=== PATIENT | female | born 1945 | race African-American/Black ===

== ENCOUNTER 2017-08-23 17:00 | Emergency (ER) | payer MEDICARE, OTHER, MEDICAID ==
[~2017-08-23] VITALS: Ht 172.7 cm; Wt 113.6 kg
[~2017-08-23 17:00] MED LIST: CLON.2 PO; DILT120C92 PO; ENAL10TA PO; FURO40 PO; INSU100C4 SQ; METO-391 PO; PANT20TA PO; SUCR1TAB PO; ZOLP10TA2 PO; [UNRECOGNIZED DRUG - OTHER]
[2017-08-23] MEDS ORDERED: OXYC-31 PO (18:37)
[2017-08-23] MEDS ORDERED: DILT180C63 PO (18:37)
[2017-08-23] MEDS ORDERED: PANT40TA25 PO (18:37)
[2017-08-23] MEDS ORDERED: IBUPROFEN 600 MG TABLET PO ONE (18:45)
[2017-08-23 19:29] VITALS: BP 148/87
== END 2017-08-23 19:50 | disposition home or self-care (01) ==
LOC: EMS 17:02
DX: S93.401A Sprain of unspecified ligament of right ankle, initial encounter (principal); S93.601A Unspecified sprain of right foot, initial encounter; I25.10 Atherosclerotic heart disease of native coronary artery without angina pectoris; E11.9 Type 2 diabetes mellitus without complications; I10 Essential (primary) hypertension; E78.00 Pure hypercholesterolemia, unspecified; Z79.4 Long term (current) use of insulin; Z88.0 Allergy status to penicillin; Z88.5 Allergy status to narcotic agent; Z88.8 Allergy status to other drugs, medicaments and biological substances; X50.9XXA Other and unspecified overexertion or strenuous movements or postures, initial encounter; Y93.89 Activity, other specified; Y92.89 Other specified places as the place of occurrence of the external cause; Y99.8 Other external cause status
CPT/HCPCS: 29540; 99284

== ENCOUNTER 2018-04-17 22:01 | Emergency (ER) | payer MEDICARE, OTHER ==
[~2018-04-17] VITALS: Ht 172.7 cm; Wt 122.7 kg
[~2018-04-17 22:01] MED LIST changes: -DILT120C92 PO; +DILT180C63 PO; +OXYC-31 PO; -PANT20TA PO; +PANT40TA25 PO; -[UNRECOGNIZED DRUG - OTHER]
[2018-04-17] MEDS ORDERED: SODIUM CHLORIDE 0.9% 1,000 ML IV ONE (22:30)
[2018-04-17] MEDS ORDERED: MIRALAX PO (22:41)
[2018-04-17] MEDS ORDERED: COLE625 PO (22:41)
[2018-04-17] MEDS ORDERED: OXCA300T PO (22:41)
[2018-04-17] MEDS ORDERED: FURO20 PO (22:41)
[2018-04-17] MEDS ORDERED: MOM30 PO (22:41)
[2018-04-17] MEDS ORDERED: AUD NEB (22:41)
[2018-04-17] MEDS ORDERED: CLOP75 PO (22:41)
[2018-04-17] MEDS ORDERED: VALS80TA2 PO (22:41)
[2018-04-17] MEDS ORDERED: ONDA4 PO (22:41)
[2018-04-17] MEDS ORDERED: GABA-531 PO (22:41)
[2018-04-17] MEDS ORDERED: INSLAN SQ (22:41)
[2018-04-17] MEDS ORDERED: BISA10S PR (22:41)
[2018-04-17] MEDS ORDERED: FE PR (22:41)
[2018-04-17] MEDS ORDERED: METO-558 PO (22:41)
[2018-04-17] MEDS ORDERED: INSU100V SQ (22:41)
[2018-04-17] MEDS ORDERED: FERR-89 PO (22:41)
[2018-04-18] MEDS ORDERED: IBUPROFEN 600 MG TABLET PO ONE (00:45)
[2018-04-18 01:24] VITALS: BP 155/61
== END 2018-04-18 03:35 | disposition home or self-care (01) ==
LOC: EMS 22:03
DX: S16.1XXA Strain of muscle, fascia and tendon at neck level, initial encounter (principal); S29.012A Strain of muscle and tendon of back wall of thorax, initial encounter; F41.9 Anxiety disorder, unspecified; E11.9 Type 2 diabetes mellitus without complications; E78.00 Pure hypercholesterolemia, unspecified; I10 Essential (primary) hypertension; Z88.0 Allergy status to penicillin; Z88.8 Allergy status to other drugs, medicaments and biological substances; Z88.6 Allergy status to analgesic agent; Z79.899 Other long term (current) drug therapy; Z79.4 Long term (current) use of insulin; X58.XXXA Exposure to other specified factors, initial encounter; Y93.B9 Activity, other involving muscle strengthening exercises; Y92.89 Other specified places as the place of occurrence of the external cause; Y99.8 Other external cause status
CPT/HCPCS: 99283

== ENCOUNTER 2018-04-19 11:13 | Inpatient (IN) | payer MEDICARE, MEDICAID ==
[~2018-04-19] VITALS: Ht 172.7 cm; Wt 113.0 kg
[~2018-04-19 11:13] MED LIST changes: +AUD NEB; +BISA10S PR; -CLON.2 PO; +CLOP75 PO; +COLE625 PO; -DILT180C63 PO; -ENAL10TA PO; +FE PR; +FERR-89 PO; +FURO20 PO; -FURO40 PO; +GABA-531 PO; +INSLAN SQ; -INSU100C4 SQ; +INSU100V SQ; -METO-391 PO; +METO-558 PO; +MIRALAX PO; +MOM30 PO; +ONDA4 PO; +OXCA300T PO; -OXYC-31 PO; -SUCR1TAB PO; +VALS80TA2 PO; -ZOLP10TA2 PO
[2018-04-19 11:29] LABS: GLUCOSE,POINT OF CARE 200 MG/DL (70-110)
[2018-04-19 12:12] LABS: BASOPHILS % (AUTO) 0.8 % (0.0-2.0); EOSINOPHILS % (AUTO) 0.2 % (1.0-6.0); HEMATOCRIT 36.9 % (36-46); HEMOGLOBIN 12.3 g/dL (12.0-16.0); LYMPHOCYTES # (AUTO) 1.1 K/uL (1.0-4.8); LYMPHOCYTES % (AUTO) 15.5 % (22.0-44.0); MEAN CORPUSCULAR HEMOGLOBIN 25.5 pg (26.0-34.0); MEAN CORPUSCULAR HGB CONC 33.5 G/dL (31.0-37.0); MEAN CORPUSCULAR VOLUME 76 fL (80-100); MONOCYTES # (AUTO) 0.4 K/uL (0.1-1.0); MONOCYTES % (AUTO) 5.1 % (2.0-9.0); NEUTROPHILS # (AUTO) 5.5 K/uL (1.8-7.7); NEUTROPHILS % (AUTO) 78.4 % (40.0-70.0); PLATELET COUNT (AUTO) 291 K/uL (150-450); RED BLOOD CELL COUNT(AUTO) 4.84 MIL/uL (4.00-5.20); RED CELL DISTRIBUTION WIDTH 15.9 % (11.5-14.5)
[2018-04-19 12:21] LABS: ANION GAP 5 mmol/L (8-16); CALCIUM, TOTAL 8.9 mg/dL (8.8-10.5); CARBON DIOXIDE 30 mmol/L (22-29); CHLORIDE 103 mmol/L (98-107); CREATININE 1.06 mg/dL (0.60-1.30); GLOMERULAR FILTR. RATE CALC > 60 mL/min (>60); GLUCOSE,RANDOM 189 mg/dL (70-110); POTASSIUM 3.9 mmol/L (3.5-5.1); SODIUM SERUM 138 mmol/L (136-145); UREA NITROGEN, BLOOD 13 mg/dL (7-18)
[2018-04-19 12:24] LABS: PROTHROMBIN TIME 10.7 SEC (9.4-11.6)
[2018-04-19 12:30] LABS: LACTIC ACID 1.4 mmol/L (0.4-2.0)
[2018-04-19 12:38] LABS: B-TYPE NATRIURETIC PEPTIDE 24 pg/mL (0-100)
[2018-04-19 13:00] LABS: ALANINE AMINOTRANSFERASE 52 U/L (12-78); ALBUMIN 3.5 g/dL (3.4-5.0); ALKALINE PHOSPHATASE 169 U/L (46-116); ASPARTATE AMINOTRANSFERASE 28 U/L (15-37); BILIRUBIN,TOTAL 0.4 mg/dL (0.1-1.0); CREATINE KINASE MB 1.7 ng/mL (0-5); CREATINE KINASE, TOTAL 120 U/L (26-192); TOTAL PROTEIN, SERUM 7.7 g/dL (6.4-8.2)
[2018-04-19 13:40] LABS: AMPHET/METH SCREEN,URINE NEGATIVE (NEGATIVE); BARBITURATE SCREEN, URINE NEGATIVE (NEGATIVE); BENZODIAZEPINES SCREEN,URINE NEGATIVE (NEGATIVE); BILIRUBIN,URINE NEGATIVE (NEGATIVE); CANNABINOID SCREEN,URINE NEGATIVE (NEGATIVE); COCAINE SCREEN,URINE NEGATIVE (NEGATIVE); GLUCOSE, URINE (UA) 250 mg/dL (NEGATIVE); KETONES,URINE NEGATIVE (NEGATIVE); LEUKOCYTE ESTERASE ,URINE NEGATIVE (NEGATIVE); METHADONE SCREEN, URINE NEGATIVE (NEGATIVE); NITRATE,URINE NEGATIVE (NEGATIVE); OCCULT BLOOD,URINE NEGATIVE (NEGATIVE); OPIATE SCREEN,URINE NEGATIVE (NEGATIVE); PH,URINE 5.5 (5.0-8.0); PROTEIN,URINE NEGATIVE (NEGATIVE); UROBILINOGEN,URINE 0.2 mg/dL (<=1.0)
[2018-04-19 13:41] LABS: PHENCYCLIDINE SCREEN,URINE NEGATIVE (NEGATIVE)
[2018-04-19 13:54] LABS: APPEARANCE,URINE 7Y= (CLEAR)
[2018-04-19 13:55] LABS: BACTERIA,URINE Rare /HPF (None Seen); RBC,URINE None Seen /HPF (0-2); SQUAMOUS EPITHELIAL CELL,UR Few /LPF (None Seen); WBC,URINE 0-2 /HPF (0-5)
[2018-04-19 14:57] LABS: GLUCOSE,POINT OF CARE 152 MG/DL (70-110)
[2018-04-19] MEDS ORDERED: FUROSEMIDE 20 MG TABLET PO ONE (16:00)
[2018-04-19] MEDS ORDERED: METOPROLOL SUCCINATE 50 MG ER TABLET PO ONE (16:00)
[2018-04-19] MEDS ORDERED: ACETAMINOPHEN 325 MG TABLET PO ONE (18:45)
[2018-04-20] MEDS ORDERED: ACETAMINOPHEN 500 MG TABLET PO ONE (02:45)
[2018-04-20 07:38] LABS: GLUCOSE,POINT OF CARE 169 MG/DL (70-110)
[2018-04-20] MEDS ORDERED: HALOPERIDOL 5 MG TABLET PO PRN (08:45)
[2018-04-20] MEDS ORDERED: LORazepam 2 MG TABLET PO PRN (08:45)
[2018-04-20 12:08] VITALS: BP 157/87
[2018-04-20 17:28] LABS: GLUCOSE,POINT OF CARE 214 MG/DL (70-110)
[2018-04-20 20:41] VITALS: BP 148/79
[2018-04-20] MEDS ORDERED: DEXTROSE 50%-WATER 25 GM/50 ML SYRINGE IVP PRN (21:00)
[2018-04-20] MEDS ORDERED: ACETAMINOPHEN 325 MG TABLET PO PRN (21:00)
[2018-04-20] MEDS: INSULIN LISPRO 100 UNITS/ML SQ PRN (21:17)
[2018-04-20] MEDS: ZOLPIDEM TARTRATE 10 MG TABLET PO PRN (21:20)
[2018-04-20 21:38] LABS: GLUCOSE,POINT OF CARE 223 MG/DL (70-110)
[2018-04-21] MEDS: IBUPROFEN 600 MG TABLET PO PRN (02:53)
[2018-04-21 05:47] LABS: CHOL/HDL RATIO 2.5 (3.9-5.7); FREE T4 (FREE THYROXINE) 0.92 ng/dL (0.76-1.46); THYROID STIMULATING HORMONE 1.19 uIU/mL (0.36-3.74)
[2018-04-21 06:48] LABS: GLUCOSE,POINT OF CARE 135 MG/DL (70-110)
[2018-04-21 08:20] VITALS: BP 191/91
[2018-04-21] MEDS: FUROSEMIDE 20 MG TABLET PO SCH ×2 (09:00→09:03)
[2018-04-21] MEDS: CLOPIDOGREL BISULFATE 75 MG TABLET PO SCH (09:03)
[2018-04-21] MEDS: VALSARTAN 80 MG TABLET PO SCH (09:03)
[2018-04-21] MEDS: METOPROLOL SUCCINATE 50 MG ER TABLET PO SCH ×2 (09:04→20:59)
[2018-04-21] MEDS: OXcarbazepine 300 MG TABLET PO SCH ×2 (09:04→20:59)
[2018-04-21] MEDS: PANTOPRAZOLE SODIUM 40 MG DR TABLET PO SCH (09:06)
[2018-04-21 10:00] VITALS: BP 145/76
[2018-04-21] MEDS: GABAPENTIN 300 MG CAPSULE PO SCH ×3 (10:37→20:59)
[2018-04-21] MEDS ORDERED: ONDANSETRON HCL 4 MG TABLET PO PRN (10:45)
[2018-04-21] MEDS ORDERED: DOCUSATE SODIUM 100 MG CAPSULE PO PRN (10:45)
[2018-04-21] MEDS ORDERED: MAGNESIUM HYDROXIDE SUSPENSION 30 ML UDCUP PO PRN (10:45)
[2018-04-21] MEDS ORDERED: PETROLATUM,WHITE 71 GM JELLY TP PRN (10:45)
[2018-04-21] MEDS: ACETAMINOPHEN 325 MG TABLET PO PRN (16:04)
[2018-04-21 16:05] VITALS: BP 126/73
[2018-04-21 17:35] LABS: GLUCOSE,POINT OF CARE 164 MG/DL (70-110)
[2018-04-21] MEDS: INSULIN LISPRO 100 UNITS/ML SQ PRN ×2 (17:40→20:54)
[2018-04-21 20:47] LABS: GLUCOSE,POINT OF CARE 279 MG/DL (70-110)
[2018-04-21] MEDS: INSULIN GLARGINE,HUM.REC.ANLOG 100 UNITS/ML SQ SCH (20:52)
[2018-04-21] MEDS: ATORVASTATIN CALCIUM 20 MG TABLET PO SCH (20:59)
[2018-04-21] MEDS: ZOLPIDEM TARTRATE 10 MG TABLET PO PRN (20:59)
[2018-04-22 05:55] LABS: GLUCOSE,POINT OF CARE 118 MG/DL (70-110)
[2018-04-22] MEDS: IBUPROFEN 600 MG TABLET PO PRN (06:12)
[2018-04-22] MEDS: METOPROLOL SUCCINATE 50 MG ER TABLET PO SCH ×2 (08:14→20:53)
[2018-04-22] MEDS: VALSARTAN 80 MG TABLET PO SCH (08:14)
[2018-04-22] MEDS: GABAPENTIN 300 MG CAPSULE PO SCH ×3 (08:14→20:53)
[2018-04-22] MEDS: PANTOPRAZOLE SODIUM 40 MG DR TABLET PO SCH (08:15)
[2018-04-22] MEDS: OXcarbazepine 300 MG TABLET PO SCH ×2 (08:16→20:53)
[2018-04-22] MEDS: CLOPIDOGREL BISULFATE 75 MG TABLET PO SCH (08:16)
[2018-04-22 08:27] VITALS: BP 168/101
[2018-04-22] MEDS: ACETAMINOPHEN 325 MG TABLET PO PRN (08:27)
[2018-04-22] MEDS: FERROUS SULFATE 325 MG EC TABLET PO SCH (08:27)
[2018-04-22] MEDS: NICOTINE 14 MG/24 HOUR PATCH TD SCH (09:00)
[2018-04-22] MEDS: FUROSEMIDE 20 MG TABLET PO SCH (09:00)
[2018-04-22 09:41] VITALS: BP 168/101
[2018-04-22] MEDS: INSULIN LISPRO 100 UNITS/ML SQ PRN ×3 (11:29→23:21)
[2018-04-22 11:50] LABS: GLUCOSE,POINT OF CARE 226 MG/DL (70-110)
[2018-04-22 15:00] VITALS: BP 149/72
[2018-04-22 17:41] LABS: GLUCOSE,POINT OF CARE 166 MG/DL (70-110)
[2018-04-22 20:24] VITALS: BP 148/79
[2018-04-22 20:44] LABS: GLUCOSE,POINT OF CARE 213 MG/DL (70-110)
[2018-04-22] MEDS: ATORVASTATIN CALCIUM 20 MG TABLET PO SCH (20:53)
[2018-04-22] MEDS: INSULIN GLARGINE,HUM.REC.ANLOG 100 UNITS/ML SQ SCH (21:00)
[2018-04-23 06:09] LABS: GLUCOSE,POINT OF CARE 162 MG/DL (70-110)
[2018-04-23] MEDS: IBUPROFEN 600 MG TABLET PO PRN (06:19)
[2018-04-23] MEDS: INSULIN LISPRO 100 UNITS/ML SQ PRN ×3 (07:13→21:39)
[2018-04-23] MEDS: FUROSEMIDE 20 MG TABLET PO SCH (09:00)
[2018-04-23] MEDS: NICOTINE 14 MG/24 HOUR PATCH TD SCH (09:00)
[2018-04-23] MEDS: GABAPENTIN 300 MG CAPSULE PO SCH ×3 (09:04→21:32)
[2018-04-23] MEDS: OXcarbazepine 300 MG TABLET PO SCH ×2 (09:04→21:33)
[2018-04-23] MEDS: CLOPIDOGREL BISULFATE 75 MG TABLET PO SCH (09:04)
[2018-04-23] MEDS: METOPROLOL SUCCINATE 50 MG ER TABLET PO SCH ×2 (09:04→21:32)
[2018-04-23] MEDS: PANTOPRAZOLE SODIUM 40 MG DR TABLET PO SCH (09:05)
[2018-04-23] MEDS: VALSARTAN 80 MG TABLET PO SCH (09:05)
[2018-04-23] MEDS: AmLODIPine BESYLATE 5 MG TABLET PO SCH (09:05)
[2018-04-23] MEDS: FERROUS SULFATE 325 MG EC TABLET PO SCH (09:05)
[2018-04-23] MEDS: ACETAMINOPHEN 325 MG TABLET PO PRN ×2 (09:11→17:16)
[2018-04-23 09:12] VITALS: BP 165/75
[2018-04-23 11:50] LABS: GLUCOSE,POINT OF CARE 156 MG/DL (70-110)
[2018-04-23 17:16] VITALS: BP 149/60
[2018-04-23 17:25] LABS: GLUCOSE,POINT OF CARE 140 MG/DL (70-110)
[2018-04-23 20:05] VITALS: BP 156/69
[2018-04-23] MEDS: ATORVASTATIN CALCIUM 20 MG TABLET PO SCH (21:33)
[2018-04-23] MEDS: INSULIN GLARGINE,HUM.REC.ANLOG 100 UNITS/ML SQ SCH (21:40)
[2018-04-23 21:59] LABS: GLUCOSE,POINT OF CARE 218 MG/DL (70-110)
[2018-04-24] MEDS: ACETAMINOPHEN 325 MG TABLET PO PRN (05:43)
[2018-04-24 06:54] LABS: GLUCOSE,POINT OF CARE 121 MG/DL (70-110)
[2018-04-24] MEDS: NICOTINE 14 MG/24 HOUR PATCH TD SCH (09:00)
[2018-04-24 09:11] VITALS: BP 154/74
[2018-04-24] MEDS: OXcarbazepine 300 MG TABLET PO SCH ×2 (09:30→20:27)
[2018-04-24] MEDS: CLOPIDOGREL BISULFATE 75 MG TABLET PO SCH (09:30)
[2018-04-24] MEDS: FUROSEMIDE 20 MG TABLET PO SCH (09:30)
[2018-04-24] MEDS: METOPROLOL SUCCINATE 50 MG ER TABLET PO SCH ×2 (09:30→20:27)
[2018-04-24] MEDS: VALSARTAN 80 MG TABLET PO SCH (09:30)
[2018-04-24] MEDS: MULTIVITAMINS WITH MINERALS, THERAPEUTIC TABLET PO SCH (09:30)
[2018-04-24] MEDS: FERROUS SULFATE 325 MG EC TABLET PO SCH (09:30)
[2018-04-24] MEDS: GABAPENTIN 300 MG CAPSULE PO SCH ×3 (09:31→20:30)
[2018-04-24] MEDS: PANTOPRAZOLE SODIUM 40 MG DR TABLET PO SCH (09:31)
[2018-04-24] MEDS: AmLODIPine BESYLATE 5 MG TABLET PO SCH (09:31)
[2018-04-24] MEDS: INSULIN LISPRO 100 UNITS/ML SQ PRN ×3 (11:16→20:43)
[2018-04-24 11:24] LABS: GLUCOSE,POINT OF CARE 171 MG/DL (70-110)
[2018-04-24 16:29] LABS: GLUCOSE,POINT OF CARE 171 MG/DL (70-110)
[2018-04-24] MEDS: ATORVASTATIN CALCIUM 20 MG TABLET PO SCH (20:27)
[2018-04-24 20:42] VITALS: BP 151/77
[2018-04-24] MEDS: INSULIN GLARGINE,HUM.REC.ANLOG 100 UNITS/ML SQ SCH (20:45)
[2018-04-24 21:09] LABS: GLUCOSE,POINT OF CARE 176 MG/DL (70-110)
[2018-04-24] MEDS: ZOLPIDEM TARTRATE 10 MG TABLET PO PRN (21:50)
[2018-04-25 06:09] LABS: GLUCOMETER DEV NAME(LOC) 3EC; GLUCOSE,POINT OF CARE 103 MG/DL (70-110)
[2018-04-25] MEDS: FERROUS SULFATE 325 MG EC TABLET PO SCH (06:58)
[2018-04-25] MEDS: INSULIN LISPRO 100 UNITS/ML SQ PRN ×4 (07:00→21:27)
[2018-04-25] MEDS: FUROSEMIDE 20 MG TABLET PO SCH ×2 (09:00→09:12)
[2018-04-25] MEDS: CLOPIDOGREL BISULFATE 75 MG TABLET PO SCH (09:12)
[2018-04-25] MEDS: NICOTINE 14 MG/24 HOUR PATCH TD SCH (09:12)
[2018-04-25] MEDS: METOPROLOL SUCCINATE 50 MG ER TABLET PO SCH ×2 (09:12→17:46)
[2018-04-25] MEDS: VALSARTAN 40 MG TABLET PO SCH (09:13)
[2018-04-25] MEDS: MULTIVITAMINS WITH MINERALS, THERAPEUTIC TABLET PO SCH (09:16)
[2018-04-25] MEDS: GABAPENTIN 300 MG CAPSULE PO SCH ×3 (09:16→17:48)
[2018-04-25] MEDS: AmLODIPine BESYLATE 5 MG TABLET PO SCH (09:16)
[2018-04-25] MEDS: OXcarbazepine 300 MG TABLET PO SCH ×2 (09:16→17:48)
[2018-04-25] MEDS: PANTOPRAZOLE SODIUM 40 MG DR TABLET PO SCH (09:16)
[2018-04-25 10:58] VITALS: BP 161/69
[2018-04-25 12:10] LABS: GLUCOMETER DEV NAME(LOC) 3EC; GLUCOSE,POINT OF CARE 225 MG/DL (70-110)
[2018-04-25 17:39] LABS: GLUCOMETER DEV NAME(LOC) 3EC; GLUCOSE,POINT OF CARE 174 MG/DL (70-110)
[2018-04-25 18:30] VITALS: BP 168/69
[2018-04-25 21:19] LABS: GLUCOMETER DEV NAME(LOC) 3EC; GLUCOSE,POINT OF CARE 339 MG/DL (70-110)
[2018-04-25] MEDS: ATORVASTATIN CALCIUM 20 MG TABLET PO SCH (21:24)
[2018-04-25] MEDS: INSULIN GLARGINE,HUM.REC.ANLOG 100 UNITS/ML SQ SCH (21:24)
[2018-04-25] MEDS: ZOLPIDEM TARTRATE 10 MG TABLET PO PRN (21:24)
[2018-04-26 06:10] VITALS: BP 142/71
[2018-04-26] MEDS: IBUPROFEN 600 MG TABLET PO PRN (06:10)
[2018-04-26] MEDS: FERROUS SULFATE 325 MG EC TABLET PO SCH (06:45)
[2018-04-26 07:03] LABS: GLUCOMETER DEV NAME(LOC) 3EC; GLUCOSE,POINT OF CARE 68 MG/DL (70-110)
[2018-04-26 07:03] LABS: GLUCOMETER DEV NAME(LOC) 3EC; GLUCOSE,POINT OF CARE 134 MG/DL (70-110)
[2018-04-26] MEDS: NICOTINE 14 MG/24 HOUR PATCH TD SCH (08:20)
[2018-04-26] MEDS: MULTIVITAMINS WITH MINERALS, THERAPEUTIC TABLET PO SCH (08:21)
[2018-04-26] MEDS: GABAPENTIN 300 MG CAPSULE PO SCH ×3 (08:21→16:07)
[2018-04-26] MEDS: VALSARTAN 40 MG TABLET PO SCH (08:21)
[2018-04-26] MEDS: CLOPIDOGREL BISULFATE 75 MG TABLET PO SCH (08:21)
[2018-04-26] MEDS: AmLODIPine BESYLATE 5 MG TABLET PO SCH (08:21)
[2018-04-26] MEDS: METOPROLOL SUCCINATE 50 MG ER TABLET PO SCH ×2 (08:21→16:08)
[2018-04-26] MEDS: FUROSEMIDE 20 MG TABLET PO SCH (08:21)
[2018-04-26] MEDS: OXcarbazepine 300 MG TABLET PO SCH ×2 (08:22→16:08)
[2018-04-26] MEDS: PANTOPRAZOLE SODIUM 40 MG DR TABLET PO SCH (08:22)
[2018-04-26 11:34] LABS: GLUCOMETER DEV NAME(LOC) 3EC; GLUCOSE,POINT OF CARE 261 MG/DL (70-110)
[2018-04-26] MEDS: INSULIN LISPRO 100 UNITS/ML SQ PRN ×3 (11:42→21:35)
[2018-04-26 13:00] VITALS: BP 147/73
[2018-04-26 16:13] VITALS: BP 141/70
[2018-04-26 16:14] LABS: GLUCOMETER DEV NAME(LOC) 3EC; GLUCOSE,POINT OF CARE 277 MG/DL (70-110)
[2018-04-26] MEDS: ATORVASTATIN CALCIUM 20 MG TABLET PO SCH (21:32)
[2018-04-26] MEDS: ZOLPIDEM TARTRATE 10 MG TABLET PO PRN (21:32)
[2018-04-26 21:33] LABS: GLUCOMETER DEV NAME(LOC) 3EC; GLUCOSE,POINT OF CARE 351 MG/DL (70-110)
[2018-04-26] MEDS: INSULIN GLARGINE,HUM.REC.ANLOG 100 UNITS/ML SQ SCH (21:34)
[2018-04-27] MEDS: FERROUS SULFATE 325 MG EC TABLET PO SCH (06:55)
[2018-04-27 07:00] LABS: GLUCOMETER DEV NAME(LOC) 3EC; GLUCOSE,POINT OF CARE 65 MG/DL (70-110)
[2018-04-27 07:24] LABS: GLUCOMETER DEV NAME(LOC) 3EC; GLUCOSE,POINT OF CARE 122 MG/DL (70-110)
[2018-04-27] MEDS: NICOTINE 14 MG/24 HOUR PATCH TD SCH (09:00)
[2018-04-27] MEDS: VALSARTAN 40 MG TABLET PO SCH (09:49)
[2018-04-27] MEDS: GABAPENTIN 300 MG CAPSULE PO SCH ×3 (09:49→17:48)
[2018-04-27] MEDS: FUROSEMIDE 20 MG TABLET PO SCH (09:49)
[2018-04-27] MEDS: CLOPIDOGREL BISULFATE 75 MG TABLET PO SCH (09:50)
[2018-04-27] MEDS: PANTOPRAZOLE SODIUM 40 MG DR TABLET PO SCH (09:50)
[2018-04-27] MEDS: MULTIVITAMINS WITH MINERALS, THERAPEUTIC TABLET PO SCH (09:50)
[2018-04-27] MEDS: AmLODIPine BESYLATE 5 MG TABLET PO SCH (09:50)
[2018-04-27] MEDS: METOPROLOL SUCCINATE 50 MG ER TABLET PO SCH ×2 (09:50→17:47)
[2018-04-27] MEDS: OXcarbazepine 300 MG TABLET PO SCH ×2 (09:50→17:48)
[2018-04-27] MEDS: INSULIN LISPRO 100 UNITS/ML SQ PRN ×2 (11:13→17:47)
[2018-04-27 11:14] LABS: GLUCOMETER DEV NAME(LOC) 3EC; GLUCOSE,POINT OF CARE 184 MG/DL (70-110)
[2018-04-27 12:14] LABS: APPEARANCE,URINE TURBID (CLEAR); BILIRUBIN,URINE NEGATIVE (NEGATIVE); GLUCOSE, URINE (UA) NEGATIVE (NEGATIVE); KETONES,URINE NEGATIVE (NEGATIVE); LEUKOCYTE ESTERASE ,URINE LARGE (NEGATIVE); NITRATE,URINE NEGATIVE (NEGATIVE); OCCULT BLOOD,URINE SMALL (NEGATIVE); PROTEIN,URINE POS 1+ (NEGATIVE)
[2018-04-27 12:28] LABS: BACTERIA,URINE Many /HPF (None Seen); SQUAMOUS EPITHELIAL CELL,UR Few /LPF (None Seen); WBC,URINE >100 /HPF (0-5)
[2018-04-27 12:33] LABS: AMPHET/METH SCREEN,URINE NEGATIVE (NEGATIVE); BARBITURATE SCREEN, URINE NEGATIVE (NEGATIVE); BENZODIAZEPINES SCREEN,URINE NEGATIVE (NEGATIVE); CANNABINOID SCREEN,URINE NEGATIVE (NEGATIVE); COCAINE SCREEN,URINE NEGATIVE (NEGATIVE); METHADONE SCREEN, URINE NEGATIVE (NEGATIVE); OPIATE SCREEN,URINE NEGATIVE (NEGATIVE)
[2018-04-27 12:35] LABS: PHENCYCLIDINE SCREEN,URINE NEGATIVE (NEGATIVE)
[2018-04-27 14:26] VITALS: BP 127/59
[2018-04-27 16:00] VITALS: BP 127/67
[2018-04-27 17:33] LABS: GLUCOMETER DEV NAME(LOC) 3EC; GLUCOSE,POINT OF CARE 219 MG/DL (70-110)
[2018-04-27] MEDS: CIPROFLOXACIN HCL 250 MG TABLET PO SCH (17:47)
[2018-04-27] MEDS: ATORVASTATIN CALCIUM 20 MG TABLET PO SCH (22:00)
[2018-04-27] MEDS: ZOLPIDEM TARTRATE 10 MG TABLET PO PRN (22:35)
[2018-04-27 22:38] LABS: GLUCOMETER DEV NAME(LOC) 3EC; GLUCOSE,POINT OF CARE 409 MG/DL (70-110)
[2018-04-27] MEDS ORDERED: INSULIN LISPRO 100 UNITS/ML SQ ONE (23:00)
[2018-04-27] MEDS: INSULIN GLARGINE,HUM.REC.ANLOG 100 UNITS/ML SQ SCH (23:08)
[2018-04-28 05:34] LABS: GLUCOMETER DEV NAME(LOC) 3EC; GLUCOSE,POINT OF CARE 146 MG/DL (70-110)
[2018-04-28] MEDS: FERROUS SULFATE 325 MG EC TABLET PO SCH (06:49)
[2018-04-28] MEDS: INSULIN LISPRO 100 UNITS/ML SQ PRN ×4 (06:56→21:50)
[2018-04-28] MEDS: CIPROFLOXACIN HCL 250 MG TABLET PO SCH ×2 (08:07→16:41)
[2018-04-28] MEDS: MULTIVITAMINS WITH MINERALS, THERAPEUTIC TABLET PO SCH (08:07)
[2018-04-28] MEDS: VALSARTAN 40 MG TABLET PO SCH (08:07)
[2018-04-28] MEDS: METOPROLOL SUCCINATE 50 MG ER TABLET PO SCH ×2 (08:07→16:42)
[2018-04-28] MEDS: GABAPENTIN 300 MG CAPSULE PO SCH ×3 (08:07→16:41)
[2018-04-28] MEDS: OXcarbazepine 300 MG TABLET PO SCH ×2 (08:07→16:41)
[2018-04-28] MEDS: AmLODIPine BESYLATE 5 MG TABLET PO SCH (08:07)
[2018-04-28] MEDS: CLOPIDOGREL BISULFATE 75 MG TABLET PO SCH (08:08)
[2018-04-28] MEDS: PANTOPRAZOLE SODIUM 40 MG DR TABLET PO SCH (08:08)
[2018-04-28] MEDS: FUROSEMIDE 20 MG TABLET PO SCH (08:08)
[2018-04-28] MEDS: ACETAMINOPHEN 325 MG TABLET PO PRN (08:56)
[2018-04-28] MEDS: NICOTINE 14 MG/24 HOUR PATCH TD SCH (09:00)
[2018-04-28 09:14] VITALS: BP 135/69
[2018-04-28 11:34] LABS: GLUCOMETER DEV NAME(LOC) 3EC; GLUCOSE,POINT OF CARE 177 MG/DL (70-110)
[2018-04-28 16:20] VITALS: BP 137/78
[2018-04-28 16:52] VITALS: BP 140/74
[2018-04-28] MEDS: IBUPROFEN 600 MG TABLET PO PRN (16:52)
[2018-04-28 16:54] LABS: GLUCOMETER DEV NAME(LOC) 3EC; GLUCOSE,POINT OF CARE 301 MG/DL (70-110)
[2018-04-28] MEDS: ATORVASTATIN CALCIUM 20 MG TABLET PO SCH (21:35)
[2018-04-28] MEDS: ZOLPIDEM TARTRATE 10 MG TABLET PO PRN (21:36)
[2018-04-28 21:49] LABS: GLUCOMETER DEV NAME(LOC) 3EC; GLUCOSE,POINT OF CARE 368 MG/DL (70-110)
[2018-04-28] MEDS: INSULIN GLARGINE,HUM.REC.ANLOG 100 UNITS/ML SQ SCH (21:51)
[2018-04-29 06:04] LABS: GLUCOMETER DEV NAME(LOC) 3EC; GLUCOSE,POINT OF CARE 308 MG/DL (70-110)
[2018-04-29] MEDS: IBUPROFEN 600 MG TABLET PO PRN (06:26)
[2018-04-29] MEDS: FERROUS SULFATE 325 MG EC TABLET PO SCH (06:53)
[2018-04-29] MEDS: INSULIN LISPRO 100 UNITS/ML SQ PRN ×4 (07:01→20:49)
[2018-04-29 08:23] VITALS: BP 147/110
[2018-04-29] MEDS: CLOPIDOGREL BISULFATE 75 MG TABLET PO SCH (08:33)
[2018-04-29] MEDS: OXcarbazepine 300 MG TABLET PO SCH ×2 (08:34→16:33)
[2018-04-29] MEDS: AmLODIPine BESYLATE 5 MG TABLET PO SCH (08:34)
[2018-04-29] MEDS: MULTIVITAMINS WITH MINERALS, THERAPEUTIC TABLET PO SCH (08:34)
[2018-04-29] MEDS: METOPROLOL SUCCINATE 50 MG ER TABLET PO SCH ×2 (08:34→16:32)
[2018-04-29] MEDS: FUROSEMIDE 20 MG TABLET PO SCH (08:34)
[2018-04-29] MEDS: CIPROFLOXACIN HCL 250 MG TABLET PO SCH ×2 (08:34→17:06)
[2018-04-29] MEDS: VALSARTAN 40 MG TABLET PO SCH (08:34)
[2018-04-29] MEDS: GABAPENTIN 300 MG CAPSULE PO SCH ×3 (08:34→16:32)
[2018-04-29] MEDS: NICOTINE 14 MG/24 HOUR PATCH TD SCH (08:35)
[2018-04-29] MEDS: PANTOPRAZOLE SODIUM 40 MG DR TABLET PO SCH (08:35)
[2018-04-29 11:08] LABS: GLUCOMETER DEV NAME(LOC) 3EC; GLUCOSE,POINT OF CARE 352 MG/DL (70-110)
[2018-04-29 11:20] VITALS: BP 144/90
[2018-04-29] MEDS: ACETAMINOPHEN 325 MG TABLET PO PRN (11:21)
[2018-04-29 16:37] VITALS: BP 118/61
[2018-04-29 16:39] LABS: GLUCOMETER DEV NAME(LOC) 3EC; GLUCOSE,POINT OF CARE 248 MG/DL (70-110)
[2018-04-29] MEDS: SULFAMETHOX/TRIMETH DS 800-160 MG/TABLET PO SCH (17:30)
[2018-04-29] MEDS: ATORVASTATIN CALCIUM 20 MG TABLET PO SCH (20:35)
[2018-04-29] MEDS: INSULIN GLARGINE,HUM.REC.ANLOG 100 UNITS/ML SQ SCH (20:48)
[2018-04-29 20:58] LABS: GLUCOMETER DEV NAME(LOC) 3EC; GLUCOSE,POINT OF CARE 344 MG/DL (70-110)
[2018-04-30 05:34] LABS: GLUCOMETER DEV NAME(LOC) 3EI B; GLUCOSE,POINT OF CARE 142 MG/DL (70-110)
[2018-04-30] MEDS: FERROUS SULFATE 325 MG EC TABLET PO SCH (06:38)
[2018-04-30] MEDS: INSULIN LISPRO 100 UNITS/ML SQ PRN ×3 (07:15→20:59)
[2018-04-30 09:00] VITALS: BP 121/57
[2018-04-30] MEDS: OXcarbazepine 300 MG TABLET PO SCH ×2 (09:00→17:30)
[2018-04-30] MEDS: FUROSEMIDE 20 MG TABLET PO SCH (09:00)
[2018-04-30] MEDS: CLOPIDOGREL BISULFATE 75 MG TABLET PO SCH (09:01)
[2018-04-30] MEDS: GABAPENTIN 300 MG CAPSULE PO SCH ×3 (09:01→17:30)
[2018-04-30] MEDS: NICOTINE 14 MG/24 HOUR PATCH TD SCH (09:01)
[2018-04-30] MEDS: METOPROLOL SUCCINATE 50 MG ER TABLET PO SCH ×2 (09:01→17:30)
[2018-04-30] MEDS: AmLODIPine BESYLATE 5 MG TABLET PO SCH (09:01)
[2018-04-30] MEDS: VALSARTAN 40 MG TABLET PO SCH (09:01)
[2018-04-30] MEDS: PANTOPRAZOLE SODIUM 40 MG DR TABLET PO SCH (09:01)
[2018-04-30] MEDS: MULTIVITAMINS WITH MINERALS, THERAPEUTIC TABLET PO SCH (09:01)
[2018-04-30] MEDS: SULFAMETHOX/TRIMETH DS 800-160 MG/TABLET PO SCH ×2 (09:01→17:30)
[2018-04-30] MEDS: IBUPROFEN 600 MG TABLET PO PRN (10:06)
[2018-04-30 11:13] LABS: GLUCOMETER DEV NAME(LOC) 3EI B; GLUCOSE,POINT OF CARE 230 MG/DL (70-110)
[2018-04-30 16:32] VITALS: BP 112/59
[2018-04-30 17:39] LABS: GLUCOMETER DEV NAME(LOC) 3EI B; GLUCOSE,POINT OF CARE 132 MG/DL (70-110)
[2018-04-30] MEDS: INSULIN GLARGINE,HUM.REC.ANLOG 100 UNITS/ML SQ SCH (20:59)
[2018-04-30] MEDS: ATORVASTATIN CALCIUM 20 MG TABLET PO SCH (21:01)
[2018-04-30 21:04] LABS: GLUCOMETER DEV NAME(LOC) 3EI B; GLUCOSE,POINT OF CARE 219 MG/DL (70-110)
[2018-05-01 05:19] LABS: GLUCOMETER DEV NAME(LOC) 3EI B; GLUCOSE,POINT OF CARE 107 MG/DL (70-110)
[2018-05-01 05:58] VITALS: BP 154/71
[2018-05-01] MEDS: FERROUS SULFATE 325 MG EC TABLET PO SCH (06:34)
[2018-05-01 08:00] VITALS: BP 108/50
[2018-05-01] MEDS: NICOTINE 14 MG/24 HOUR PATCH TD SCH (09:00)
[2018-05-01] MEDS: VALSARTAN 40 MG TABLET PO SCH (09:00)
[2018-05-01] MEDS: METOPROLOL SUCCINATE 50 MG ER TABLET PO SCH ×2 (09:00→16:12)
[2018-05-01] MEDS: PANTOPRAZOLE SODIUM 40 MG DR TABLET PO SCH (10:20)
[2018-05-01] MEDS: SULFAMETHOX/TRIMETH DS 800-160 MG/TABLET PO SCH ×2 (10:20→16:11)
[2018-05-01] MEDS: MULTIVITAMINS WITH MINERALS, THERAPEUTIC TABLET PO SCH (10:20)
[2018-05-01] MEDS: OXcarbazepine 300 MG TABLET PO SCH ×2 (10:21→16:11)
[2018-05-01] MEDS: CLOPIDOGREL BISULFATE 75 MG TABLET PO SCH (10:21)
[2018-05-01] MEDS: GABAPENTIN 300 MG CAPSULE PO SCH ×3 (10:22→16:11)
[2018-05-01] MEDS: FUROSEMIDE 20 MG TABLET PO SCH (10:23)
[2018-05-01] MEDS: VITAMINS A & D 60 GM OINTMENT TP PRN (10:36)
[2018-05-01 11:34] LABS: GLUCOMETER DEV NAME(LOC) 3EI B; GLUCOSE,POINT OF CARE 155 MG/DL (70-110)
[2018-05-01] MEDS: INSULIN LISPRO 100 UNITS/ML SQ PRN ×2 (11:50→21:06)
[2018-05-01 16:10] VITALS: BP 135/65
[2018-05-01] MEDS: IBUPROFEN 600 MG TABLET PO PRN (16:10)
[2018-05-01 20:29] LABS: GLUCOMETER DEV NAME(LOC) 3EI B; GLUCOSE,POINT OF CARE 245 MG/DL (70-110)
[2018-05-01] MEDS: ATORVASTATIN CALCIUM 20 MG TABLET PO SCH (20:52)
[2018-05-01] MEDS: INSULIN GLARGINE,HUM.REC.ANLOG 100 UNITS/ML SQ SCH (21:05)
[2018-05-02] MEDS: VITAMINS A & D 60 GM OINTMENT TP PRN (04:57)
[2018-05-02] MEDS: ALBUTEROL SULFATE HFA 90 MCG/PUFF 8 GM INHALER IH PRN ×2 (05:24→11:03)
[2018-05-02 05:38] VITALS: BP 164/75
[2018-05-02] MEDS: IBUPROFEN 600 MG TABLET PO PRN (05:46)
[2018-05-02 05:58] LABS: GLUCOMETER DEV NAME(LOC) 3EI B; GLUCOSE,POINT OF CARE 101 MG/DL (70-110)
[2018-05-02] MEDS: INSULIN LISPRO 100 UNITS/ML SQ PRN ×2 (06:26→11:50)
[2018-05-02] MEDS: FERROUS SULFATE 325 MG EC TABLET PO SCH (07:05)
[2018-05-02 08:30] VITALS: BP 126/68
[2018-05-02] MEDS: NICOTINE 14 MG/24 HOUR PATCH TD SCH (09:00)
[2018-05-02] MEDS ORDERED: AmLODIPine BESYLATE 5 MG TABLET PO SCH (09:00)
[2018-05-02] MEDS: VALSARTAN 40 MG TABLET PO SCH (10:14)
[2018-05-02] MEDS: FUROSEMIDE 20 MG TABLET PO SCH (10:14)
[2018-05-02] MEDS: GABAPENTIN 300 MG CAPSULE PO SCH ×2 (10:14→13:55)
[2018-05-02] MEDS: SULFAMETHOX/TRIMETH DS 800-160 MG/TABLET PO SCH (10:14)
[2018-05-02] MEDS: CLOPIDOGREL BISULFATE 75 MG TABLET PO SCH (10:15)
[2018-05-02] MEDS: MULTIVITAMINS WITH MINERALS, THERAPEUTIC TABLET PO SCH (10:15)
[2018-05-02] MEDS: PANTOPRAZOLE SODIUM 40 MG DR TABLET PO SCH (10:15)
[2018-05-02] MEDS: METOPROLOL SUCCINATE 50 MG ER TABLET PO SCH (10:15)
[2018-05-02] MEDS: OXcarbazepine 300 MG TABLET PO SCH (10:16)
[2018-05-02] MEDS ORDERED: ATOR20TA86 PO (10:43)
[2018-05-02] MEDS ORDERED: AMLO-511 PO (10:44)
[2018-05-02] MEDS ORDERED: SULF1TAB42 PO (10:48)
[2018-05-02] MEDS ORDERED: MULT-1239 PO (10:56)
[2018-05-02 11:39] LABS: GLUCOMETER DEV NAME(LOC) 3EI B; GLUCOSE,POINT OF CARE 170 MG/DL (70-110)
== END 2018-05-02 15:00 | disposition home or self-care (01) | DRG 885 ==
LOC: EMS 11:14 → AHU 04-20 10:54 → 3EC 04-24 21:28 → 3EI 04-29 21:15
PROVIDERS: ADMIT Psychiatry & Neurology Psychiatry; ATTEND Psychiatry & Neurology Psychiatry
DX: F29 Unspecified psychosis not due to a substance or known physiological condition (principal); N39.0 Urinary tract infection, site not specified; F32.9 Major depressive disorder, single episode, unspecified; E11.9 Type 2 diabetes mellitus without complications; J45.909 Unspecified asthma, uncomplicated; G40.909 Epilepsy, unspecified, not intractable, without status epilepticus; K21.9 Gastro-esophageal reflux disease without esophagitis; R45.87 Impulsiveness; E66.01 Morbid (severe) obesity due to excess calories; K59.09 Other constipation; R26.81 Unsteadiness on feet; I11.0 Hypertensive heart disease with heart failure; I50.9 Heart failure, unspecified; B96.4 Proteus (mirabilis) (morganii) as the cause of diseases classified elsewhere; F41.9 Anxiety disorder, unspecified; I25.10 Atherosclerotic heart disease of native coronary artery without angina pectoris; E78.00 Pure hypercholesterolemia, unspecified; E78.5 Hyperlipidemia, unspecified; Z86.73 Personal history of transient ischemic attack (TIA), and cerebral infarction without residual deficits; Z79.4 Long term (current) use of insulin; Z59.0 Homelessness; Z88.0 Allergy status to penicillin; Z88.5 Allergy status to narcotic agent; Z90.710 Acquired absence of both cervix and uterus; Z90.721 Acquired absence of ovaries, unilateral; Z88.6 Allergy status to analgesic agent; Z68.37 Body mass index [BMI] 37.0-37.9, adult
CPT/HCPCS: 70450; 80307; 83605; 84439; 84443; 87040; 87081; 87086; 93005; 97161; 97166; 97530; 97535; 99285; J1815; J3535

== ENCOUNTER 2019-08-06 13:40 | Inpatient (IN) | payer MEDICARE, OTHER ==
[~2019-08-06] VITALS: Ht 172.7 cm; Wt 107.9 kg
[~2019-08-06 13:40] MED LIST changes: +AMLO5TAB9 PO; +ATOR20TA86 PO; -AUD NEB; -BISA10S PR; -CLOP75 PO; +CLOP75TA3 PO; -COLE625 PO; -FE PR; -INSU100V SQ; -MIRALAX PO; -MOM30 PO; +MULT-1239 PO; -ONDA4 PO; -OXCA300T PO; +OXCA300T29 PO; +SULF1TAB42 PO
[2019-08-06 14:51] LABS: GLUCOSE,POINT OF CARE 340 MG/DL (70-110)
[2019-08-06 15:26] LABS: BASOPHILS % (AUTO) 0.7 % (0.0-2.0); EOSINOPHILS % (AUTO) 0.6 % (1.0-6.0); HEMATOCRIT 38.4 % (36-46); HEMOGLOBIN 12.8 g/dL (12.0-16.0); LYMPHOCYTES # (AUTO) 1.5 K/uL (1.0-4.8); LYMPHOCYTES % (AUTO) 27.7 % (22.0-44.0); MEAN CORPUSCULAR HEMOGLOBIN 26.3 pg (26.0-34.0); MEAN CORPUSCULAR HGB CONC 33.2 G/dL (31.0-37.0); MEAN CORPUSCULAR VOLUME 79 fL (80-100); MONOCYTES # (AUTO) 0.3 K/uL (0.1-1.0); MONOCYTES % (AUTO) 6.3 % (2.0-9.0); NEUTROPHILS # (AUTO) 3.4 K/uL (1.8-7.7); NEUTROPHILS % (AUTO) 64.7 % (40.0-70.0); PLATELET COUNT (AUTO) 224 K/uL (150-450); RED BLOOD CELL COUNT(AUTO) 4.84 MIL/uL (4.00-5.20)
[2019-08-06 15:43] LABS: ANION GAP 8 mmol/L (8-16); CALCIUM, TOTAL 9.4 mg/dL (8.8-10.5); CARBON DIOXIDE 29 mmol/L (22-29); CHLORIDE 104 mmol/L (98-107); CREATININE 0.89 mg/dL (0.60-1.30); GLUCOSE,RANDOM 319 mg/dL (70-110); POTASSIUM 3.5 mmol/L (3.5-5.1); SODIUM SERUM 141 mmol/L (136-145)
[2019-08-06 15:51] LABS: ALANINE AMINOTRANSFERASE 12 U/L (12-78); ALKALINE PHOSPHATASE 145 U/L (46-116); ASPARTATE AMINOTRANSFERASE 10 U/L (15-37); BILIRUBIN,TOTAL 0.3 mg/dL (0.1-1.0); TOTAL PROTEIN, SERUM 6.4 g/dL (6.4-8.2); UREA NITROGEN, BLOOD 5 mg/dL (7-18)
[2019-08-06 16:03] LABS: GLOMERULAR FILTR. RATE CALC > 60 mL/min (>60)
[2019-08-06 16:09] LABS: ALBUMIN 3.2 g/dL (3.4-5.0)
[2019-08-06 16:26] LABS: APPEARANCE,URINE CLOUDY (CLEAR); BILIRUBIN,URINE NEGATIVE (NEGATIVE); GLUCOSE, URINE (UA) >=1000 mg/dL (NEGATIVE); KETONES,URINE NEGATIVE (NEGATIVE); LEUKOCYTE ESTERASE ,URINE MODERATE (NEGATIVE); NITRATE,URINE NEGATIVE (NEGATIVE); OCCULT BLOOD,URINE TRACE (NEGATIVE); PH,URINE 5.5 (5.0-8.0); PROTEIN,URINE NEGATIVE (NEGATIVE); UROBILINOGEN,URINE 0.2 mg/dL (<=1.0)
[2019-08-06 16:48] LABS: BACTERIA,URINE Few /HPF (None Seen); RBC,URINE 0-2 /HPF (0-2); SQUAMOUS EPITHELIAL CELL,UR Few /LPF (None Seen); YEAST,URINE Few /HPF (None Seen)
[2019-08-06] MEDS ORDERED: LEVOFLOXACIN 500 MG TABLET PO ONE (17:30)
[2019-08-06] MEDS ORDERED: TraMADol HCL 50 MG TABLET PO ONE (17:30)
[2019-08-06] MEDS ORDERED: 0.9% SODIUM CHLORIDE 10 ML SYRINGE IVP PRN (21:30)
[2019-08-06] MEDS ORDERED: DEXTROSE 50%-WATER 25 GM/50 ML SYRINGE IVP PRN (21:30)
[2019-08-06] MEDS ORDERED: ONDANSETRON HCL 4 MG/2 ML VIAL IVP PRN (21:30)
[2019-08-06] MEDS ORDERED: *CLINICAL-LEVOFLOXACIN IVPB DOSING CLINICAL ONE (21:30)
[2019-08-06] MEDS ORDERED: ZOLPIDEM TARTRATE 5 MG TABLET PO PRN (21:30)
[2019-08-06] MEDS ORDERED: INSULIN LISPRO 100 UNITS/ML SQ PRN (21:30)
[2019-08-06 21:35] VITALS: BP 177/73
[2019-08-06] MEDS: METOPROLOL SUCCINATE 50 MG ER TABLET PO SCH (22:45)
[2019-08-06] MEDS: ACETAMINOPHEN 325 MG TABLET PO PRN (22:45)
[2019-08-06] MEDS: OXcarbazepine 300 MG TABLET PO SCH (22:46)
[2019-08-06] MEDS: HydrALAZINE HCL 10 MG TABLET PO PRN (23:42)
[2019-08-07 00:10] VITALS: BP 161/81
[2019-08-07] MEDS: HydrALAZINE HCL 10 MG TABLET PO PRN (00:12)
[2019-08-07 04:15] VITALS: BP 157/96
[2019-08-07] MEDS: ACETAMINOPHEN 325 MG TABLET PO PRN ×2 (05:03→13:34)
[2019-08-07 06:41] LABS: BASOPHILS % (AUTO) 0.4 % (0.0-2.0); EOSINOPHILS % (AUTO) 1.2 % (1.0-6.0); HEMATOCRIT 38.4 % (36-46); HEMOGLOBIN 12.8 g/dL (12.0-16.0); LYMPHOCYTES # (AUTO) 1.8 K/uL (1.0-4.8); MEAN CORPUSCULAR HEMOGLOBIN 26.4 pg (26.0-34.0); MEAN CORPUSCULAR HGB CONC 33.5 G/dL (31.0-37.0); MEAN CORPUSCULAR VOLUME 79 fL (80-100); MONOCYTES # (AUTO) 0.4 K/uL (0.1-1.0); MONOCYTES % (AUTO) 8.3 % (2.0-9.0); NEUTROPHILS # (AUTO) 2.8 K/uL (1.8-7.7); NEUTROPHILS % (AUTO) 55.1 % (40.0-70.0); PLATELET COUNT (AUTO) 177 K/uL (150-450); RED BLOOD CELL COUNT(AUTO) 4.87 MIL/uL (4.00-5.20); RED CELL DISTRIBUTION WIDTH 14.9 % (11.5-14.5)
[2019-08-07 06:48] LABS: ANION GAP 7 mmol/L (8-16); CALCIUM, TOTAL 9.1 mg/dL (8.8-10.5); CARBON DIOXIDE 28 mmol/L (22-29); CHLORIDE 106 mmol/L (98-107); CREATININE 0.93 mg/dL (0.60-1.30); GLUCOSE,RANDOM 335 mg/dL (70-110); POTASSIUM 3.4 mmol/L (3.5-5.1); SODIUM SERUM 141 mmol/L (136-145)
[2019-08-07 06:52] LABS: GLOMERULAR FILTR. RATE CALC > 60 mL/min (>60)
[2019-08-07 06:57] LABS: UREA NITROGEN, BLOOD 5 mg/dL (7-18)
[2019-08-07 07:56] LABS: GLUCOMETER DEV NAME(LOC) 4E.2; GLUCOSE,POINT OF CARE 299 MG/DL (70-110)
[2019-08-07 08:04] VITALS: BP 173/89
[2019-08-07] MEDS: PANTOPRAZOLE SODIUM 40 MG DR TABLET PO SCH (08:35)
[2019-08-07] MEDS: GABAPENTIN 300 MG CAPSULE PO SCH ×3 (08:35→20:52)
[2019-08-07] MEDS: OXcarbazepine 300 MG TABLET PO SCH ×2 (08:36→20:52)
[2019-08-07] MEDS: METOPROLOL SUCCINATE 50 MG ER TABLET PO SCH (08:36)
[2019-08-07] MEDS ORDERED: HydrALAZINE HCL 10 MG TABLET PO PRN (11:45)
[2019-08-07 11:54] VITALS: BP 159/88
[2019-08-07] MEDS ORDERED: DEXTROSE 50%-WATER 25 GM/50 ML SYRINGE IVP PRN (12:00)
[2019-08-07] MEDS ORDERED: MAGNESIUM SULFATE 2 GM/WATER 50 ML IV ONE (12:00)
[2019-08-07] MEDS ORDERED: POTASSIUM CHLORIDE 20 MEQ ER TABLET PO ONE (12:00)
[2019-08-07] MEDS: INSULIN LISPRO 100 UNITS/ML SQ PRN ×3 (12:10→22:07)
[2019-08-07] MEDS ORDERED: SODIUM CHLORIDE 0.9% 500 ML IV ONE (12:35)
[2019-08-07] MEDS: HEPARIN SODIUM,PORCINE 5,000 UNITS/ML VIAL SQ SCH ×2 (12:44→20:53)
[2019-08-07] MEDS: LISINOPRIL 5 MG TABLET PO SCH (12:44)
[2019-08-07] MEDS: CefTRIAXone 1 GM/DEXTROSE 50 ML IV SCH (12:45)
[2019-08-07 13:10] LABS: GLUCOMETER DEV NAME(LOC) 4E.2; GLUCOSE,POINT OF CARE 272 MG/DL (70-110)
[2019-08-07 15:51] VITALS: BP 163/70
[2019-08-07] MEDS ORDERED: LEVOFLOXACIN 500 MG/D5% WATER 100 ML IV SCH (17:00)
[2019-08-07 17:11] LABS: GLUCOMETER DEV NAME(LOC) 6N.2; GLUCOSE,POINT OF CARE 295 MG/DL (70-110)
[2019-08-07 20:43] VITALS: BP 158/70
[2019-08-07] MEDS: METOPROLOL TARTRATE 25 MG TABLET PO SCH (20:56)
[2019-08-07] MEDS: TraMADol HCL 50 MG TABLET PO PRN (21:59)
[2019-08-07] MEDS: INSULIN GLARGINE,HUM.REC.ANLOG 100 UNITS/ML SQ SCH (22:08)
[2019-08-08 00:05] VITALS: BP 125/69
[2019-08-08 05:26] VITALS: BP 163/78
[2019-08-08] MEDS: TraMADol HCL 50 MG TABLET PO PRN ×3 (05:36→21:13)
[2019-08-08] MEDS: INSULIN LISPRO 100 UNITS/ML SQ PRN ×4 (06:15→22:11)
[2019-08-08 06:45] LABS: GLUCOMETER DEV NAME(LOC) 6N.2; GLUCOSE,POINT OF CARE 379 MG/DL (70-110)
[2019-08-08 06:45] LABS: GLUCOMETER DEV NAME(LOC) 6N.2; GLUCOSE,POINT OF CARE 355 MG/DL (70-110)
[2019-08-08 06:46] LABS: GLUCOMETER DEV NAME(LOC) 6N.2; GLUCOSE,POINT OF CARE 215 MG/DL (70-110)
[2019-08-08 07:30] VITALS: BP 151/68
[2019-08-08] MEDS: DOCUSATE SODIUM 100 MG CAPSULE PO PRN (08:20)
[2019-08-08] MEDS: PANTOPRAZOLE SODIUM 40 MG DR TABLET PO SCH (08:20)
[2019-08-08] MEDS: LISINOPRIL 5 MG TABLET PO SCH (08:20)
[2019-08-08] MEDS: METOPROLOL TARTRATE 25 MG TABLET PO SCH ×2 (08:20→21:07)
[2019-08-08] MEDS: HEPARIN SODIUM,PORCINE 5,000 UNITS/ML VIAL SQ SCH ×2 (08:21→21:06)
[2019-08-08] MEDS: OXcarbazepine 300 MG TABLET PO SCH ×2 (08:23→21:07)
[2019-08-08] MEDS: GABAPENTIN 300 MG CAPSULE PO SCH ×3 (08:29→21:00)
[2019-08-08 11:10] VITALS: BP 138/108
[2019-08-08] MEDS: CefTRIAXone 1 GM/DEXTROSE 50 ML IV SCH (11:57)
[2019-08-08 15:35] VITALS: BP 165/66
[2019-08-08 16:46] LABS: GLUCOMETER DEV NAME(LOC) 6N.2; GLUCOSE,POINT OF CARE 293 MG/DL (70-110)
[2019-08-08 20:08] VITALS: BP 126/56
[2019-08-08] MEDS: INSULIN GLARGINE,HUM.REC.ANLOG 100 UNITS/ML SQ SCH (22:09)
[2019-08-09 00:16] VITALS: BP 131/83
[2019-08-09 04:00] VITALS: BP 127/83
[2019-08-09] MEDS: INSULIN LISPRO 100 UNITS/ML SQ PRN ×4 (05:42→20:52)
[2019-08-09 06:21] LABS: GLUCOMETER DEV NAME(LOC) 4E.2; GLUCOSE,POINT OF CARE 229 MG/DL (70-110)
[2019-08-09 06:21] LABS: GLUCOMETER DEV NAME(LOC) 4E.2; GLUCOSE,POINT OF CARE 309 MG/DL (70-110)
[2019-08-09 06:21] LABS: GLUCOMETER DEV NAME(LOC) 4E.2; GLUCOSE,POINT OF CARE 254 MG/DL (70-110)
[2019-08-09 08:43] VITALS: BP 142/58
[2019-08-09] MEDS: DOCUSATE SODIUM 100 MG CAPSULE PO PRN (08:47)
[2019-08-09] MEDS: PANTOPRAZOLE SODIUM 40 MG DR TABLET PO SCH (08:47)
[2019-08-09] MEDS: METOPROLOL TARTRATE 25 MG TABLET PO SCH ×2 (08:47→19:44)
[2019-08-09] MEDS: LISINOPRIL 5 MG TABLET PO SCH (08:47)
[2019-08-09] MEDS: HEPARIN SODIUM,PORCINE 5,000 UNITS/ML VIAL SQ SCH ×2 (08:48→19:44)
[2019-08-09] MEDS: OXcarbazepine 300 MG TABLET PO SCH ×2 (08:48→19:44)
[2019-08-09] MEDS: TraMADol HCL 50 MG TABLET PO PRN ×2 (08:50→22:11)
[2019-08-09] MEDS: GABAPENTIN 300 MG CAPSULE PO SCH ×3 (08:54→22:15)
[2019-08-09 09:00] LABS: BASOPHILS % (AUTO) 0.8 % (0.0-2.0); EOSINOPHILS % (AUTO) 1.4 % (1.0-6.0); HEMATOCRIT 38.7 % (36-46); HEMOGLOBIN 12.5 g/dL (12.0-16.0); LYMPHOCYTES # (AUTO) 1.9 K/uL (1.0-4.8); LYMPHOCYTES % (AUTO) 41.1 % (22.0-44.0); MEAN CORPUSCULAR HEMOGLOBIN 25.7 pg (26.0-34.0); MEAN CORPUSCULAR HGB CONC 32.4 G/dL (31.0-37.0); MEAN CORPUSCULAR VOLUME 79 fL (80-100); MONOCYTES # (AUTO) 0.4 K/uL (0.1-1.0); MONOCYTES % (AUTO) 7.9 % (2.0-9.0); NEUTROPHILS # (AUTO) 2.2 K/uL (1.8-7.7); NEUTROPHILS % (AUTO) 48.8 % (40.0-70.0); PLATELET COUNT (AUTO) 182 K/uL (150-450); RED BLOOD CELL COUNT(AUTO) 4.88 MIL/uL (4.00-5.20); RED CELL DISTRIBUTION WIDTH 14.6 % (11.5-14.5)
[2019-08-09 09:09] LABS: ANION GAP 6 mmol/L (8-16); CALCIUM, TOTAL 8.9 mg/dL (8.8-10.5); CARBON DIOXIDE 29 mmol/L (22-29); CHLORIDE 103 mmol/L (98-107); CREATININE 0.79 mg/dL (0.60-1.30); GLUCOSE,RANDOM 174 mg/dL (70-110); POTASSIUM 3.7 mmol/L (3.5-5.1); SODIUM SERUM 138 mmol/L (136-145); UREA NITROGEN, BLOOD 10 mg/dL (7-18)
[2019-08-09 09:14] LABS: GLOMERULAR FILTR. RATE CALC > 60 mL/min (>60)
[2019-08-09 12:40] VITALS: BP 156/74
[2019-08-09] MEDS: CefTRIAXone 1 GM/DEXTROSE 50 ML IV SCH (12:44)
[2019-08-09 16:00] LABS: GLUCOMETER DEV NAME(LOC) 4E.2; GLUCOSE,POINT OF CARE 251 MG/DL (70-110)
[2019-08-09 16:15] VITALS: BP 123/73
[2019-08-09] MEDS: ACETAMINOPHEN 325 MG TABLET PO PRN (19:44)
[2019-08-09 19:45] VITALS: BP 126/68
[2019-08-09] MEDS: INSULIN GLARGINE,HUM.REC.ANLOG 100 UNITS/ML SQ SCH (20:53)
[2019-08-09 21:06] LABS: GLUCOMETER DEV NAME(LOC) 6N.2; GLUCOSE,POINT OF CARE 197 MG/DL (70-110)
[2019-08-10 00:05] LABS: GLUCOMETER DEV NAME(LOC) 4E.2; GLUCOSE,POINT OF CARE 265 MG/DL (70-110)
[2019-08-10 00:39] VITALS: BP 140/72
[2019-08-10] MEDS: INSULIN LISPRO 100 UNITS/ML SQ PRN ×2 (06:15→11:49)
[2019-08-10 06:21] VITALS: BP 103/54
[2019-08-10 06:50] LABS: GLUCOMETER DEV NAME(LOC) 4E.2; GLUCOSE,POINT OF CARE 171 MG/DL (70-110)
[2019-08-10] MEDS: TraMADol HCL 50 MG TABLET PO PRN ×2 (06:53→13:11)
[2019-08-10 08:10] VITALS: BP 143/63
[2019-08-10] MEDS: GABAPENTIN 300 MG CAPSULE PO SCH ×2 (09:27→09:46)
[2019-08-10] MEDS: LISINOPRIL 5 MG TABLET PO SCH (09:28)
[2019-08-10] MEDS: OXcarbazepine 300 MG TABLET PO SCH (09:28)
[2019-08-10] MEDS: METOPROLOL TARTRATE 25 MG TABLET PO SCH (09:28)
[2019-08-10] MEDS: PANTOPRAZOLE SODIUM 40 MG DR TABLET PO SCH (09:28)
[2019-08-10] MEDS: HEPARIN SODIUM,PORCINE 5,000 UNITS/ML VIAL SQ SCH (09:32)
[2019-08-10 11:48] VITALS: BP 154/73
[2019-08-10] MEDS: CefTRIAXone 1 GM/DEXTROSE 50 ML IV SCH ×2 (12:43→13:00)
[2019-08-10 13:07] LABS: GLUCOMETER DEV NAME(LOC) 4E.2; GLUCOSE,POINT OF CARE 168 MG/DL (70-110)
== END 2019-08-10 15:20 | DRG 689 ==
LOC: EMS 13:45 → 4E 19:44
PROVIDERS: ADMIT Internal Medicine; ATTEND Internal Medicine
DX: N39.0 Urinary tract infection, site not specified (principal); G92 Toxic encephalopathy; F41.9 Anxiety disorder, unspecified; I25.10 Atherosclerotic heart disease of native coronary artery without angina pectoris; K59.00 Constipation, unspecified; E11.9 Type 2 diabetes mellitus without complications; E78.5 Hyperlipidemia, unspecified; E78.00 Pure hypercholesterolemia, unspecified; E86.0 Dehydration; J45.909 Unspecified asthma, uncomplicated; I10 Essential (primary) hypertension; K59.09 Other constipation; Z88.6 Allergy status to analgesic agent; Z88.8 Allergy status to other drugs, medicaments and biological substances; Z88.0 Allergy status to penicillin; Z88.5 Allergy status to narcotic agent; Z83.3 Family history of diabetes mellitus; Z82.49 Family history of ischemic heart disease and other diseases of the circulatory system; Z90.710 Acquired absence of both cervix and uterus
CPT/HCPCS: 74176; 76770; 83735; 87086; 97116; 97162; G0378; J0696; J1644; J1815; J1956; J3475; J7040

== ENCOUNTER 2019-11-22 18:37 | Inpatient (IN) | payer MEDICARE, OTHER ==
[~2019-11-22] VITALS: Ht 172.7 cm; Wt 117.1 kg
[~2019-11-22 18:37] MED LIST changes: -AMLO5TAB9 PO; -ATOR20TA86 PO; -CLOP75TA3 PO; -FERR-89 PO; -FURO20 PO; -MULT-1239 PO; -SULF1TAB42 PO; -VALS80TA2 PO
[2019-11-22] MEDS ORDERED: INSU100V SQ (19:07)
[2019-11-22] MEDS ORDERED: LISI-622 PO (19:07)
[2019-11-22] MEDS ORDERED: PERCT PO (19:07)
[2019-11-22] MEDS ORDERED: METO25 PO (19:10)
[2019-11-22] MEDS ORDERED: PANT40TA25 PO (19:10)
[2019-11-22 20:10] LABS: GLUCOSE,POINT OF CARE 368 MG/DL (70-110)
[2019-11-22 20:25] LABS: BASOPHILS % (AUTO) 0.3 % (0.0-2.0); EOSINOPHILS % (AUTO) 1.6 % (1.0-6.0); HEMATOCRIT 41.3 % (36-46); HEMOGLOBIN 13.5 g/dL (12.0-16.0); LYMPHOCYTES # (AUTO) 1.7 K/uL (1.0-4.8); LYMPHOCYTES % (AUTO) 28.7 % (22.0-44.0); MEAN CORPUSCULAR HEMOGLOBIN 25.9 pg (26.0-34.0); MEAN CORPUSCULAR HGB CONC 32.6 G/dL (31.0-37.0); MEAN CORPUSCULAR VOLUME 79 fL (80-100); MONOCYTES # (AUTO) 0.4 K/uL (0.1-1.0); MONOCYTES % (AUTO) 6.2 % (2.0-9.0); NEUTROPHILS # (AUTO) 3.7 K/uL (1.8-7.7); NEUTROPHILS % (AUTO) 63.2 % (40.0-70.0); PLATELET COUNT (AUTO) 215 K/uL (150-450); RED CELL DISTRIBUTION WIDTH 15.2 % (11.5-14.5)
[2019-11-22 20:41] LABS: ANION GAP 9 mmol/L (8-16); CALCIUM, TOTAL 9.2 mg/dL (8.8-10.5); CARBON DIOXIDE 28 mmol/L (22-29); CHLORIDE 104 mmol/L (98-107); GLUCOSE,RANDOM 344 mg/dL (70-110); POTASSIUM 3.3 mmol/L (3.5-5.1); SODIUM SERUM 141 mmol/L (136-145); UREA NITROGEN, BLOOD 8 mg/dL (7-18)
[2019-11-22 20:42] LABS: GLOMERULAR FILTR. RATE CALC > 60 mL/min (>60)
[2019-11-22 20:54] LABS: ALANINE AMINOTRANSFERASE 20 U/L (12-78); ALBUMIN 3.3 g/dL (3.4-5.0); ALKALINE PHOSPHATASE 175 U/L (46-116); ASPARTATE AMINOTRANSFERASE 12 U/L (15-37); BILIRUBIN,TOTAL 0.3 mg/dL (0.1-1.0); LIPASE 190 U/L (73-393)
[2019-11-22] MEDS ORDERED: SODIUM CHLORIDE 0.9% 100 ML ONE (21:05)
[2019-11-22] MEDS ORDERED: IOVERSOL 350 MG/ML 100 ML VIAL ONE (21:06)
[2019-11-22 22:06] LABS: APPEARANCE,URINE CLOUDY (CLEAR); BILIRUBIN,URINE NEGATIVE (NEGATIVE); GLUCOSE, URINE (UA) >=1000 mg/dL (NEGATIVE); KETONES,URINE NEGATIVE (NEGATIVE); LEUKOCYTE ESTERASE ,URINE SMALL (NEGATIVE); NITRATE,URINE NEGATIVE (NEGATIVE); OCCULT BLOOD,URINE SMALL (NEGATIVE); PH,URINE 5.5 (5.0-8.0); PROTEIN,URINE TRACE (NEGATIVE); UROBILINOGEN,URINE 0.2 mg/dL (<=1.0)
[2019-11-22 22:13] LABS: BACTERIA,URINE Many /HPF (None Seen); RBC,URINE 0-2 /HPF (0-2); WBC,URINE 26-50 /HPF (0-5)
[2019-11-22 22:14] LABS: SQUAMOUS EPITHELIAL CELL,UR Moderate /LPF (None Seen); YEAST,URINE Many /HPF (None Seen)
[2019-11-23] MEDS ORDERED: CefTRIAXone 1 GM/DEXTROSE 50 ML IV ONE (00:45)
[2019-11-23] MEDS ORDERED: MetroNIDAZOLE 500 MG/NACL 100 ML IV ONE (00:45)
[2019-11-23] MEDS ORDERED: ACETAMINOPHEN 325 MG TABLET PO PRN (02:00)
[2019-11-23] MEDS ORDERED: ONDANSETRON HCL 4 MG/2 ML VIAL IVP PRN ×2 (02:00→20:15)
[2019-11-23] MEDS ORDERED: 0.9% SODIUM CHLORIDE 10 ML SYRINGE IVP PRN ×2 (02:00→20:15)
[2019-11-23 05:16] LABS: GLUCOSE,POINT OF CARE 271 MG/DL (70-110)
[2019-11-23 07:54] LABS: GLUCOSE,POINT OF CARE 267 MG/DL (70-110)
[2019-11-23 11:51] LABS: GLUCOSE,POINT OF CARE 326 MG/DL (70-110)
[2019-11-23] MEDS ORDERED: DEXTROSE 50%-WATER 25 GM/50 ML SYRINGE IVP PRN ×2 (12:15→20:15)
[2019-11-23] MEDS: OxyCODONE HCL/ACETAMINOPHEN 5-325 MG TABLET PO PRN ×3 (12:49→22:20)
[2019-11-23] MEDS: INSULIN LISPRO 100 UNITS/ML SQ PRN ×3 (12:50→22:23)
[2019-11-23 17:28] LABS: GLUCOSE,POINT OF CARE 364 MG/DL (70-110)
[2019-11-23] MEDS ORDERED: POTASSIUM CHL 10 MEQ/WATER 50 ML IV PRN (20:15)
[2019-11-23] MEDS ORDERED: POTASSIUM CHLORIDE 20 MEQ ER TABLET PO PRN (20:15)
[2019-11-23 20:45] VITALS: BP 150/78
[2019-11-23] MEDS ORDERED: INSULIN GLARGINE,HUM.REC.ANLOG 100 UNITS/ML SQ SCH (21:00)
[2019-11-23] MEDS ORDERED: SODIUM CHLORIDE 0.9% 500 ML IV ONE (21:49)
[2019-11-23] MEDS: DOCUSATE SODIUM 100 MG CAPSULE PO SCH (22:00)
[2019-11-23] MEDS: PANTOPRAZOLE SODIUM 40 MG DR TABLET PO SCH (22:05)
[2019-11-23] MEDS: LISINOPRIL 5 MG TABLET PO SCH (22:05)
[2019-11-23] MEDS: METOPROLOL TARTRATE 25 MG TABLET PO SCH (22:05)
[2019-11-23] MEDS ORDERED: HYDROmorphone 2 MG/ML SYRINGE IVP ONE (23:00)
[2019-11-23] MEDS: MetroNIDAZOLE 500 MG/NACL 100 ML IV SCH (23:00)
[2019-11-24 00:17] VITALS: BP 158/85
[2019-11-24] MEDS: LEVOFLOXACIN 500 MG/D5% WATER 100 ML IV SCH (00:42)
[2019-11-24 04:20] VITALS: BP 155/73
[2019-11-24] MEDS: OxyCODONE HCL/ACETAMINOPHEN 5-325 MG TABLET PO PRN ×3 (04:22→16:09)
[2019-11-24] MEDS: MetroNIDAZOLE 500 MG/NACL 100 ML IV SCH ×3 (06:06→23:38)
[2019-11-24] MEDS: INSULIN LISPRO 100 UNITS/ML SQ PRN ×3 (06:14→20:35)
[2019-11-24 08:03] VITALS: BP 150/78
[2019-11-24] MEDS: DOCUSATE SODIUM 100 MG CAPSULE PO SCH ×3 (09:20→20:44)
[2019-11-24] MEDS: METOPROLOL TARTRATE 25 MG TABLET PO SCH (09:20)
[2019-11-24] MEDS: PANTOPRAZOLE SODIUM 40 MG DR TABLET PO SCH (09:20)
[2019-11-24] MEDS: LISINOPRIL 5 MG TABLET PO SCH (09:20)
[2019-11-24 12:06] VITALS: BP 148/76
[2019-11-24 15:49] VITALS: BP 142/74
[2019-11-24] MEDS ORDERED: SODIUM CHLORIDE 0.9% 1,000 ML IV SCH (19:45)
[2019-11-24 20:03] VITALS: BP 132/61
[2019-11-24] MEDS ORDERED: DEXTROSE 50%-WATER 25 GM/50 ML SYRINGE IVP PRN (20:30)
[2019-11-24] MEDS: KETOROLAC TROMETHAMINE 15 MG/ML VIAL IVP SCH (20:33)
[2019-11-24] MEDS ORDERED: INSULIN GLARGINE,HUM.REC.ANLOG 100 UNITS/ML SQ SCH (21:00)
[2019-11-24] MEDS ORDERED: POTASSIUM CHLORIDE 20 MEQ ER TABLET PO PRN (21:45)
[2019-11-24] MEDS ORDERED: POTASSIUM CHL 10 MEQ/WATER 50 ML IV PRN (21:45)
[2019-11-25 00:02] VITALS: BP 131/59
[2019-11-25] MEDS: KETOROLAC TROMETHAMINE 15 MG/ML VIAL IVP SCH ×2 (01:00→03:49)
[2019-11-25] MEDS: LEVOFLOXACIN 500 MG/D5% WATER 100 ML IV SCH (01:06)
[2019-11-25] MEDS: OxyCODONE HCL/ACETAMINOPHEN 5-325 MG TABLET PO PRN ×3 (06:32→21:37)
[2019-11-25] MEDS: MetroNIDAZOLE 500 MG/NACL 100 ML IV SCH ×3 (06:50→21:32)
[2019-11-25 08:15] VITALS: BP 175/95
[2019-11-25] MEDS: METOPROLOL TARTRATE 25 MG TABLET PO SCH (08:38)
[2019-11-25] MEDS: LISINOPRIL 5 MG TABLET PO SCH (08:38)
[2019-11-25] MEDS: PANTOPRAZOLE SODIUM 40 MG DR TABLET PO SCH (08:38)
[2019-11-25] MEDS: DOCUSATE SODIUM 100 MG CAPSULE PO SCH ×3 (08:38→21:20)
[2019-11-25] MEDS: INSULIN LISPRO 100 UNITS/ML SQ PRN ×2 (11:43→17:11)
[2019-11-25 11:44] VITALS: BP 157/68
[2019-11-25 16:11] VITALS: BP 157/68
[2019-11-25] MEDS: HEPARIN SODIUM,PORCINE 5,000 UNITS/ML VIAL SQ SCH ×2 (16:24→23:53)
[2019-11-25 19:50] VITALS: BP 148/70
[2019-11-25] MEDS: ATORVASTATIN CALCIUM 20 MG TABLET PO SCH ×2 (21:00→21:21)
[2019-11-25] MEDS: INSULIN GLARGINE,HUM.REC.ANLOG 100 UNITS/ML SQ SCH (21:00)
[2019-11-25 23:36] VITALS: BP 168/70
[2019-11-26] MEDS ORDERED: SODIUM CHLORIDE 0.9% 250 ML IV ONE (02:30)
[2019-11-26] MEDS: LEVOFLOXACIN 500 MG/D5% WATER 100 ML IV SCH (02:44)
[2019-11-26 05:09] VITALS: BP 170/77
[2019-11-26] MEDS: MetroNIDAZOLE 500 MG/NACL 100 ML IV SCH ×2 (05:39→14:47)
[2019-11-26 07:25] VITALS: BP 164/72
[2019-11-26] MEDS: METOPROLOL TARTRATE 25 MG TABLET PO SCH (08:53)
[2019-11-26] MEDS: PANTOPRAZOLE SODIUM 40 MG DR TABLET PO SCH (08:53)
[2019-11-26] MEDS: DOCUSATE SODIUM 100 MG CAPSULE PO SCH ×2 (08:53→21:06)
[2019-11-26] MEDS: HEPARIN SODIUM,PORCINE 5,000 UNITS/ML VIAL SQ SCH ×3 (08:53→23:29)
[2019-11-26] MEDS: LISINOPRIL 5 MG TABLET PO SCH (08:53)
[2019-11-26 11:25] VITALS: BP 143/93
[2019-11-26] MEDS: OxyCODONE HCL/ACETAMINOPHEN 5-325 MG TABLET PO PRN (11:42)
[2019-11-26] MEDS: INSULIN LISPRO 100 UNITS/ML SQ PRN ×3 (11:43→21:14)
[2019-11-26] MEDS ORDERED: METR500 PO (12:49)
[2019-11-26] MEDS ORDERED: LEVO-72 PO (12:49)
[2019-11-26 15:42] VITALS: BP 145/85
[2019-11-26 17:00] VITALS: BP 159/68
[2019-11-26] MEDS: ACETAMINOPHEN 325 MG TABLET PO PRN ×2 (17:03→23:37)
[2019-11-26 20:34] VITALS: BP 149/72
[2019-11-26] MEDS: LEVOFLOXACIN 500 MG TABLET PO SCH (21:06)
[2019-11-26] MEDS: ATORVASTATIN CALCIUM 20 MG TABLET PO SCH (21:06)
[2019-11-26] MEDS: INSULIN GLARGINE,HUM.REC.ANLOG 100 UNITS/ML SQ SCH (21:13)
[2019-11-26] MEDS: MetroNIDAZOLE 500 MG TABLET PO SCH (23:29)
[2019-11-27 00:15] VITALS: BP 150/76
[2019-11-27] MEDS: HEPARIN SODIUM,PORCINE 5,000 UNITS/ML VIAL SQ SCH ×2 (08:00→16:00)
[2019-11-27] MEDS: MetroNIDAZOLE 500 MG TABLET PO SCH ×3 (08:00→16:00)
[2019-11-27 08:13] VITALS: BP 124/61
[2019-11-27] MEDS: DOCUSATE SODIUM 100 MG CAPSULE PO SCH ×2 (09:00→21:02)
[2019-11-27] MEDS: LEVOFLOXACIN 500 MG TABLET PO SCH ×2 (09:00→09:11)
[2019-11-27] MEDS: PANTOPRAZOLE SODIUM 40 MG DR TABLET PO SCH (09:10)
[2019-11-27] MEDS: LISINOPRIL 5 MG TABLET PO SCH (09:10)
[2019-11-27] MEDS: METOPROLOL TARTRATE 25 MG TABLET PO SCH (09:11)
[2019-11-27 11:43] VITALS: BP 157/79
[2019-11-27 16:40] VITALS: BP 143/75
[2019-11-27 19:35] VITALS: BP 183/93
[2019-11-27] MEDS: INSULIN LISPRO 100 UNITS/ML SQ PRN (20:59)
[2019-11-27] MEDS: ATORVASTATIN CALCIUM 20 MG TABLET PO SCH (21:02)
[2019-11-27] MEDS: INSULIN GLARGINE,HUM.REC.ANLOG 100 UNITS/ML SQ SCH (21:11)
[2019-11-27 23:25] VITALS: BP 131/61
[2019-11-28] MEDS: HEPARIN SODIUM,PORCINE 5,000 UNITS/ML VIAL SQ SCH ×5 (00:01→23:44)
[2019-11-28] MEDS: INSULIN LISPRO 100 UNITS/ML SQ PRN ×2 (07:18→21:32)
[2019-11-28] MEDS: LISINOPRIL 5 MG TABLET PO SCH (07:49)
[2019-11-28] MEDS: MetroNIDAZOLE 500 MG TABLET PO SCH ×4 (07:49→23:41)
[2019-11-28] MEDS: PANTOPRAZOLE SODIUM 40 MG DR TABLET PO SCH (07:49)
[2019-11-28] MEDS: METOPROLOL TARTRATE 25 MG TABLET PO SCH (07:50)
[2019-11-28] MEDS: DOCUSATE SODIUM 100 MG CAPSULE PO SCH ×2 (07:50→21:29)
[2019-11-28] MEDS: LEVOFLOXACIN 500 MG TABLET PO SCH (07:50)
[2019-11-28 19:29] VITALS: BP 176/86
[2019-11-28 20:49] LABS: GLUCOMETER DEV NAME(LOC) 4E.2; GLUCOSE,POINT OF CARE 283 MG/DL (70-110)
[2019-11-28 20:49] LABS: GLUCOMETER DEV NAME(LOC) 4E.2; GLUCOSE,POINT OF CARE 235 MG/DL (70-110)
[2019-11-28 20:49] LABS: GLUCOMETER DEV NAME(LOC) 4E.2; GLUCOSE,POINT OF CARE 177 MG/DL (70-110)
[2019-11-28 20:49] LABS: GLUCOMETER DEV NAME(LOC) 4E.2; GLUCOSE,POINT OF CARE 103 MG/DL (70-110)
[2019-11-28 20:49] LABS: GLUCOMETER DEV NAME(LOC) 4E.2; GLUCOSE,POINT OF CARE 407 MG/DL (70-110)
[2019-11-28 20:49] LABS: GLUCOMETER DEV NAME(LOC) 4E.2; GLUCOSE,POINT OF CARE 172 MG/DL (70-110)
[2019-11-28 20:49] LABS: GLUCOMETER DEV NAME(LOC) 4E.2; GLUCOSE,POINT OF CARE 223 MG/DL (70-110)
[2019-11-28 20:50] LABS: GLUCOMETER DEV NAME(LOC) 4E.2; GLUCOSE,POINT OF CARE 227 MG/DL (70-110)
[2019-11-28 20:50] LABS: GLUCOMETER DEV NAME(LOC) 4E.2; GLUCOSE,POINT OF CARE 173 MG/DL (70-110)
[2019-11-28 20:50] LABS: GLUCOMETER DEV NAME(LOC) 4E.2; GLUCOSE,POINT OF CARE 209 MG/DL (70-110)
[2019-11-28 20:50] LABS: GLUCOMETER DEV NAME(LOC) 4E.2; GLUCOSE,POINT OF CARE 175 MG/DL (70-110)
[2019-11-28 20:51] LABS: GLUCOMETER DEV NAME(LOC) 4E.2; GLUCOSE,POINT OF CARE 222 MG/DL (70-110)
[2019-11-28 20:51] LABS: GLUCOMETER DEV NAME(LOC) 4E.2; GLUCOSE,POINT OF CARE 162 MG/DL (70-110)
[2019-11-28 20:51] LABS: GLUCOMETER DEV NAME(LOC) 4E.2; GLUCOSE,POINT OF CARE 330 MG/DL (70-110)
[2019-11-28 20:51] LABS: GLUCOMETER DEV NAME(LOC) 4E.2; GLUCOSE,POINT OF CARE 123 MG/DL (70-110)
[2019-11-28] MEDS: ATORVASTATIN CALCIUM 20 MG TABLET PO SCH (21:29)
[2019-11-28] MEDS: INSULIN GLARGINE,HUM.REC.ANLOG 100 UNITS/ML SQ SCH (21:30)
[2019-11-28 23:51] VITALS: BP 135/82
[2019-11-29 04:27] VITALS: BP 165/71
[2019-11-29] MEDS: INSULIN LISPRO 100 UNITS/ML SQ PRN (06:20)
[2019-11-29] MEDS: LEVOFLOXACIN 500 MG TABLET PO SCH (10:19)
[2019-11-29] MEDS: HEPARIN SODIUM,PORCINE 5,000 UNITS/ML VIAL SQ SCH (10:19)
[2019-11-29] MEDS: METOPROLOL TARTRATE 25 MG TABLET PO SCH (10:19)
[2019-11-29] MEDS: MetroNIDAZOLE 500 MG TABLET PO SCH (10:19)
[2019-11-29] MEDS: LISINOPRIL 5 MG TABLET PO SCH (10:20)
[2019-11-29] MEDS: PANTOPRAZOLE SODIUM 40 MG DR TABLET PO SCH (10:20)
[2019-11-29] MEDS: DOCUSATE SODIUM 100 MG CAPSULE PO SCH (10:20)
[2019-11-29 12:33] VITALS: BP 141/82
[2019-12-03 13:10] LABS: GLUCOMETER DEV NAME(LOC) 4E.2; GLUCOSE,POINT OF CARE 175 MG/DL (70-110)
[2019-12-03 13:10] LABS: GLUCOMETER DEV NAME(LOC) 4E.2; GLUCOSE,POINT OF CARE 159 MG/DL (70-110)
[2019-12-03 13:10] LABS: GLUCOMETER DEV NAME(LOC) 4E.2; GLUCOSE,POINT OF CARE 368 MG/DL (70-110)
== END 2019-11-29 13:13 | DRG 392 ==
LOC: EMS 18:40 → 4E 11-23 19:35
PROVIDERS: ADMIT Internal Medicine; ATTEND Internal Medicine
DX: K57.92 Diverticulitis of intestine, part unspecified, without perforation or abscess without bleeding (principal); N39.0 Urinary tract infection, site not specified; E44.0 Moderate protein-calorie malnutrition; E87.6 Hypokalemia; E66.01 Morbid (severe) obesity due to excess calories; J44.9 Chronic obstructive pulmonary disease, unspecified; F32.9 Major depressive disorder, single episode, unspecified; F41.9 Anxiety disorder, unspecified; I25.10 Atherosclerotic heart disease of native coronary artery without angina pectoris; E78.00 Pure hypercholesterolemia, unspecified; K59.00 Constipation, unspecified; I10 Essential (primary) hypertension; Z91.19 Patient's noncompliance with other medical treatment and regimen; Z90.710 Acquired absence of both cervix and uterus; Z90.49 Acquired absence of other specified parts of digestive tract; Z68.39 Body mass index [BMI] 39.0-39.9, adult; Z88.8 Allergy status to other drugs, medicaments and biological substances; Z88.6 Allergy status to analgesic agent; Z88.0 Allergy status to penicillin; Z79.899 Other long term (current) drug therapy; Z79.4 Long term (current) use of insulin; Z86.73 Personal history of transient ischemic attack (TIA), and cerebral infarction without residual deficits; Z98.890 Other specified postprocedural states; Z83.3 Family history of diabetes mellitus; Z82.49 Family history of ischemic heart disease and other diseases of the circulatory system; E11.9 Type 2 diabetes mellitus without complications
CPT/HCPCS: 74177; 83036; 87086; 96365; 96367; 96372; 97116; 97162; 97166; 97530; 97535; G0378; J0696; J1170; J1644; J1815; J1885; J1956; J3490; J7030; J7040; J7050

== ENCOUNTER 2020-09-07 18:29 | Emergency (ER) | payer MEDICARE, OTHER ==
[~2020-09-07] VITALS: Ht 167.6 cm; Wt 104.5 kg
[~2020-09-07 18:29] MED LIST changes: -GABA-531 PO; +INSU100V SQ; +LEVO-72 PO; +LISI-622 PO; -METO-558 PO; +METO25 PO; +METR500 PO; -OXCA300T29 PO; +OXCA300T57 PO; -PANT40TA25 PO; +PANT40TA54 PO
[2020-09-07] MEDS ORDERED: LORA10TA7 PO (18:47)
[2020-09-07] MEDS ORDERED: GABA-1181 PO (18:47)
[2020-09-07] MEDS ORDERED: ATOR20TA86 PO (18:47)
[2020-09-07 19:40] LABS: GLUCOSE,POINT OF CARE 204 MG/DL (70-110)
[2020-09-07 20:18] VITALS: BP 159/74
== END 2020-09-07 21:19 | disposition home or self-care (01) ==
LOC: EMS 18:29
DX: R45.1 Restlessness and agitation (principal); I25.10 Atherosclerotic heart disease of native coronary artery without angina pectoris; F32.9 Major depressive disorder, single episode, unspecified; E11.9 Type 2 diabetes mellitus without complications; E78.00 Pure hypercholesterolemia, unspecified; I10 Essential (primary) hypertension; Z86.73 Personal history of transient ischemic attack (TIA), and cerebral infarction without residual deficits; Z88.0 Allergy status to penicillin; Z88.1 Allergy status to other antibiotic agents; Z88.5 Allergy status to narcotic agent; Z79.4 Long term (current) use of insulin; Z79.899 Other long term (current) drug therapy